=== PATIENT | male | born 1955 | race Hispanic/Latino ===

== ENCOUNTER 2020-07-28 09:16 | Observation (INO) | payer OTHER ==
[2020-07-25 16:08] LABS: EOSINOPHILS % (AUTO) 1.7 % (0.0-8.0); LYMPHOCYTES % (AUTO) 24.4 % (21.0-51.0); MEAN CORPUSCULAR HEMOGLOBIN 25.9 pg (27.0-33.0); MEAN CORPUSCULAR HGB CONC 31.7 g/dL (32.0-36.0); MEAN CORPUSCULAR VOLUME 81.7 fL (79-99); MONOCYTES % (AUTO) 7.7 % (3.0-13.0); NEUTROPHILS % (AUTO) 64.7 % (40.0-77.0); PLATELET COUNT (AUTO) 199 K/uL (130-400); RED BLOOD CELL COUNT(AUTO) 5.14 MIL/uL (4.50-6.20); RED CELL DISTRIBUTION WIDTH 14.6 % (11.0-15.5); WHITE BLOOD COUNT (AUTO) 7.7 K/uL (4.8-10.8)
[2020-07-25 16:09] LABS: APPEARANCE,URINE CLOUDY (CLEAR); BILIRUBIN,URINE NEGATIVE (NEGATIVE); COLOR,URINE YELLOW (YELLOW); GLUCOSE, URINE (UA) NEGATIVE (NEGATIVE); KETONES,URINE NEGATIVE (NEGATIVE); LEUKOCYTE ESTERASE ,URINE LARGE (NEGATIVE); NITRATE,URINE POSITIVE (NEGATIVE); OCCULT BLOOD,URINE MODERATE (NEGATIVE); PH,URINE 6.5 (5.0-8.0); PROTEIN,URINE 100 mg/dL (NEGATIVE); UROBILINOGEN,URINE 0.2 mg/dL (0.2-1.0)
[2020-07-25 16:21] LABS: INR 0.94 (0.85-1.15); PROTHROMBIN TIME 10.3 SEC (9.6-11.6)
[2020-07-25 16:21] LABS: BACTERIA,URINE Few /HPF (None Seen); WBC,URINE >100 /HPF (0-1)
[2020-07-25 16:22] LABS: SQUAMOUS EPITHELIAL CELL,UR Rare /HPF (0-2)
[2020-07-25 16:24] LABS: CREATININE 1.2 mg/dL (0.5-1.5); POTASSIUM 4.5 mmol/L (3.5-5.1)
[2020-07-27 09:05] VITALS: BP 140/77
[2020-07-28] VITALS (25 sets, daily range): BP systolic 130–190; BP diastolic 69–88
[~2020-07-28] VITALS: Ht 167.6 cm; Wt 71.8 kg
[~2020-07-28 09:16] MED LIST: CEFTRIAXONE SODIUM 1 GM IVP ONE; GENTAMICIN SULFATE IV SCH; PHARMACY COMMUNICATION MISC SCH; SODIUM CHLORIDE 0.9% IV SCH
[2020-07-28] MEDS ORDERED: TAMS-1 PO (10:11)
[2020-07-28] MEDS ORDERED: LEVO500T89 PO (10:11)
[2020-07-28] MEDS ORDERED: LACTATED RINGERS 1000ML 1,000 ML IV ONE (10:22)
[2020-07-28] MEDS ORDERED: SODIUM CHLORIDE 0.9% IV SCH (10:30)
[2020-07-28] MEDS ORDERED: GENTAMICIN SULFATE IV SCH (10:30)
[2020-07-28] MEDS ORDERED: CEFTRIAXONE SODIUM 1 GM ONE (10:52)
[2020-07-28] MEDS ORDERED: SUCCINYLCHOLINE CHLORIDE 20 MG/ML 10 ML VIAL ONE (11:24)
[2020-07-28] MEDS ORDERED: LIDOCAINE PF 100MG/5ML (2%) SYRINGE 5ML ONE (11:24)
[2020-07-28] MEDS ORDERED: GLYCOPYRROLATE 1 MG/5 ML SYRINGE ONE (11:25)
[2020-07-28] MEDS ORDERED: NEOSTIGMINE 5MG/5ML SYR IV ONE (11:25)
[2020-07-28] MEDS ORDERED: DEXAMETHASONE SOD PHOSPHATE 10MG/ML 1ML VIAL ONE (11:25)
[2020-07-28] MEDS ORDERED: PROPOFOL 10 MG/ML 20ML VIAL IV ONE (11:25)
[2020-07-28] MEDS ORDERED: MIDAZOLAM HCL 1 MG/ML 2ML VIAL ONE (11:25)
[2020-07-28] MEDS ORDERED: ONDANSETRON HCL 4 MG/2 ML VIAL ONE (11:26)
[2020-07-28] MEDS ORDERED: FENTANYL CITRATE PF 50 MCG/1 ML 2ML VIAL ONE ×3 (11:26→13:01)
[2020-07-28] MEDS ORDERED: ROCURONIUM 10MG/1ML SYR 10 MG/ML ML ONE (11:26)
[2020-07-28] MEDS ORDERED: ESMOLOL HCL 10 MG/ML 10 ML VIAL ONE (12:37)
[2020-07-28 13:39] LABS: ABG BASE EXCESS -4.7 mmol/L (-2.0-3.0); ABG HCO3 20.8 mmol/L (21.0-28.0); ABG OXYGEN SATURATION 89.2 % (95.0-99.0); ABG PCO2 40 mmHg (35-48)
[2020-07-28 13:49] LABS: ABG BASE EXCESS -2.1 mmol/L (-2.0-3.0); ABG HCO3 23.4 mmol/L (21.0-28.0); ABG OXYGEN SATURATION 94.9 % (95.0-99.0); ABG PCO2 42 mmHg (35-48)
[2020-07-28] MEDS ORDERED: ONDANSETRON HCL 4 MG/2 ML VIAL IVP PRN (14:30)
[2020-07-28] MEDS ORDERED: OPIUM/BELLADONNA ALKALOIDS 1 EACH SUPP.RECT RC PRN (14:30)
[2020-07-28 14:59] LABS: BASOPHILS % (AUTO) 0.3 % (0.0-5.0); EOSINOPHILS % (AUTO) 0.5 % (0.0-8.0); HEMATOCRIT 25.2 % (42-54); LYMPHOCYTES % (AUTO) 28.8 % (21.0-51.0); MEAN CORPUSCULAR HEMOGLOBIN 26.5 pg (27.0-33.0); MEAN CORPUSCULAR HGB CONC 34.1 g/dL (32.0-36.0); MEAN CORPUSCULAR VOLUME 77.8 fL (79-99); NEUTROPHILS % (AUTO) 64.2 % (40.0-77.0); PLATELET COUNT (AUTO) 163 K/uL (130-400); RED BLOOD CELL COUNT(AUTO) 3.24 MIL/uL (4.50-6.20); RED CELL DISTRIBUTION WIDTH 19.8 % (11.0-15.5); WHITE BLOOD COUNT (AUTO) 18.8 K/uL (4.8-10.8)
[2020-07-28] MEDS ORDERED: SODIUM CHLORIDE 0.9% 1000ML 1,000 ML IV ONE (15:17)
[2020-07-28] MEDS: MEROPENEM 500 MG VIAL IVP SCH ×2 (15:28→21:18)
[2020-07-28 15:30] LABS: ABG HCO3 19.3 mmol/L (21.0-28.0); ABG OXYGEN SATURATION 99.4 % (95.0-99.0); ABG PCO2 34 mmHg (35-48)
[2020-07-28] MEDS: SODIUM CHLORIDE 0.9% 1000ML 1,000 ML IV SCH (15:38)
[2020-07-28 15:42] LABS: INR 1.1 (0.85-1.15); PROTHROMBIN TIME 11.9 SEC (9.6-11.6)
[2020-07-28 15:43] LABS: PARTIAL THROMBOPLASTIN TIME 29.4 SEC (26.3-35.5)
[2020-07-28] MEDS ORDERED: LABETALOL HCL 5 MG/ML 20ML VIAL IV PRN (15:45)
[2020-07-28] MEDS ORDERED: LIDOCAINE HCL-MPF 1% 2ML VIAL IV PRN ×2 (15:45)
[2020-07-28] MEDS ORDERED: POTASSIUM CHLORIDE 10% ELIXIR 20 MEQ/15 ML UDCUP PO PRN (15:45)
[2020-07-28] MEDS ORDERED: MAGNESIUM 2GM PREMIX 50ML 50 ML IV PRN (15:45)
[2020-07-28] MEDS ORDERED: POTASSIUM CHLORIDE 20 MEQ ERTAB PO PRN (15:45)
[2020-07-28] MEDS ORDERED: POTASSIUM CHLORIDE 20MEQ/100ML 100 ML IV PRN ×2 (15:45)
[2020-07-28 16:04] LABS: ALBUMIN 2.4 g/dL (3.5-5.0); BILIRUBIN,TOTAL 1.3 mg/dL (0.2-1.0); CREATININE 0.9 mg/dL (0.5-1.5); POTASSIUM 4.1 mmol/L (3.5-5.1); TOTAL PROTEIN, SERUM 6.3 g/dL (6.0-8.3)
[2020-07-28] MEDS ORDERED: SODIUM BICARB 50MEQ 50ML VIAL IV STA (16:33)
[2020-07-28] MEDS ORDERED: IPRATROPIUM 0.5 MG/2.5 ML INH IH ONE (16:33)
[2020-07-28] MEDS: MORPHINE SULFATE 2 MG/ML 1ML SYG IVP PRN (17:07)
[2020-07-28] MEDS: IPRATROPIUM 0.5 MG/2.5 ML INH IH SCH (18:14)
[2020-07-28 18:29] LABS: CREATININE 0.9 mg/dL (0.5-1.5); POTASSIUM 3.7 mmol/L (3.5-5.1)
[2020-07-28] MEDS: SODIUM CHLORIDE 1,000 MG TAB PO SCH ×2 (19:00→21:17)
[2020-07-28] MEDS ORDERED: SODIUM CHLORIDE 1,000 MG TAB PO SCH (21:00)
[2020-07-28 21:27] LABS: CREATININE 1.2 mg/dL (0.5-1.5); POTASSIUM 4.2 mmol/L (3.5-5.1)
[2020-07-28] MEDS: TRAMADOL HCL 50 MG TABLET PO PRN (22:08)
[2020-07-29] VITALS (26 sets, daily range): BP systolic 90–157; BP diastolic 40–82
[2020-07-29] MEDS: IPRATROPIUM 0.5 MG/2.5 ML INH IH SCH ×5 (00:01→23:45)
[2020-07-29 00:40] LABS: HEMATOCRIT 25.9 % (42-54)
[2020-07-29] MEDS: SODIUM CHLORIDE 0.9% 1000ML 1,000 ML IV SCH (00:55)
[2020-07-29] MEDS: MORPHINE SULFATE 2 MG/ML 1ML SYG IVP PRN (03:32)
[2020-07-29 04:46] LABS: BASOPHILS % (AUTO) 0.1 % (0.0-5.0); LYMPHOCYTES % (AUTO) 5.8 % (21.0-51.0); MEAN CORPUSCULAR HEMOGLOBIN 25.1 pg (27.0-33.0); MEAN CORPUSCULAR HGB CONC 33.1 g/dL (32.0-36.0); MEAN CORPUSCULAR VOLUME 75.8 fL (79-99); MONOCYTES % (AUTO) 6.6 % (3.0-13.0); NEUTROPHILS % (AUTO) 86.7 % (40.0-77.0); PLATELET COUNT (AUTO) 169 K/uL (130-400); RED BLOOD CELL COUNT(AUTO) 3.43 MIL/uL (4.50-6.20); RED CELL DISTRIBUTION WIDTH 18.1 % (11.0-15.5); WHITE BLOOD COUNT (AUTO) 14.9 K/uL (4.8-10.8)
[2020-07-29 04:58] LABS: INR 1.03 (0.85-1.15); PROTHROMBIN TIME 11.2 SEC (9.6-11.6)
[2020-07-29 05:00] LABS: PARTIAL THROMBOPLASTIN TIME 23.8 SEC (26.3-35.5)
[2020-07-29 05:02] LABS: ALBUMIN 2.7 g/dL (3.5-5.0); BILIRUBIN,TOTAL 1.7 mg/dL (0.2-1.0); CREATININE 1.4 mg/dL (0.5-1.5); MAGNESIUM 1.4 mg/dL (1.80-2.40); POTASSIUM 4.4 mmol/L (3.5-5.1); TOTAL PROTEIN, SERUM 5.5 g/dL (6.0-8.3)
[2020-07-29] MEDS: MEROPENEM 500 MG VIAL IVP SCH ×3 (06:01→22:32)
[2020-07-29] MEDS: SODIUM CHLORIDE 1,000 MG TAB PO SCH ×2 (08:50→21:01)
[2020-07-29] MEDS: TRAMADOL HCL 50 MG TABLET PO PRN ×2 (14:38→21:00)
[2020-07-30 04:00] VITALS: BP 92/56
[2020-07-30] MEDS: TRAMADOL HCL 50 MG TABLET PO PRN ×2 (04:03→14:04)
[2020-07-30 05:24] LABS: HEMATOCRIT 23.8 % (42-54); MEAN CORPUSCULAR HEMOGLOBIN 25.1 pg (27.0-33.0); MEAN CORPUSCULAR HGB CONC 31.9 g/dL (32.0-36.0); MEAN CORPUSCULAR VOLUME 78.5 fL (79-99); RED BLOOD CELL COUNT(AUTO) 3.03 MIL/uL (4.50-6.20); RED CELL DISTRIBUTION WIDTH 19.2 % (11.0-15.5); WHITE BLOOD COUNT (AUTO) 16.7 K/uL (4.8-10.8)
[2020-07-30 05:31] LABS: CREATININE 1.5 mg/dL (0.5-1.5)
[2020-07-30] MEDS: MEROPENEM 500 MG VIAL IVP SCH ×3 (05:55→21:18)
[2020-07-30] MEDS: IPRATROPIUM 0.5 MG/2.5 ML INH IH SCH ×4 (06:31→23:40)
[2020-07-30 07:53] VITALS: BP 103/58
[2020-07-30 11:10] VITALS: BP 92/52
[2020-07-30 16:20] VITALS: BP 122/65
[2020-07-30 20:00] VITALS: BP 117/54
[2020-07-31] VITALS: BP 119/61
[2020-07-31 04:00] VITALS: BP 106/68
[2020-07-31 05:31] LABS: BASOPHILS % (AUTO) 0.3 % (0.0-5.0); EOSINOPHILS % (AUTO) 0.6 % (0.0-8.0); HEMATOCRIT 26.4 % (42-54); LYMPHOCYTES % (AUTO) 22.2 % (21.0-51.0); MEAN CORPUSCULAR HEMOGLOBIN 24.7 pg (27.0-33.0); MEAN CORPUSCULAR HGB CONC 31.4 g/dL (32.0-36.0); MEAN CORPUSCULAR VOLUME 78.6 fL (79-99); MONOCYTES % (AUTO) 10.7 % (3.0-13.0); PLATELET COUNT (AUTO) 160 K/uL (130-400); RED BLOOD CELL COUNT(AUTO) 3.36 MIL/uL (4.50-6.20); RED CELL DISTRIBUTION WIDTH 18.4 % (11.0-15.5)
[2020-07-31 05:37] LABS: CREATININE 1.2 mg/dL (0.5-1.5); POTASSIUM 3.5 mmol/L (3.5-5.1)
[2020-07-31] MEDS: IPRATROPIUM 0.5 MG/2.5 ML INH IH SCH ×2 (05:57→11:08)
[2020-07-31] MEDS: MEROPENEM 500 MG VIAL IVP SCH (07:28)
[2020-07-31 07:54] VITALS: BP 107/54
[2020-07-31 11:20] VITALS: BP 120/72
== END 2020-07-31 14:30 | disposition home or self-care (01) ==
LOC: DAH 09:16 → 2CH 09:17 → DAH 09:17 → INTOOBSV 09:17 → 3AH 07-29 14:12
PROVIDERS: ADMIT Urology; ATTEND Urology
DX: N40.1 Benign prostatic hyperplasia with lower urinary tract symptoms (principal); Z20.822 Contact with and (suspected) exposure to COVID-19; R33.8 Other retention of urine; N39.0 Urinary tract infection, site not specified; B96.1 Klebsiella pneumoniae [K. pneumoniae] as the cause of diseases classified elsewhere; D64.9 Anemia, unspecified; E87.1 Hypo-osmolality and hyponatremia; R07.89 Other chest pain; I10 Essential (primary) hypertension; R00.1 Bradycardia, unspecified; Z16.24 Resistance to multiple antibiotics; Z79.899 Other long term (current) drug therapy
CPT/HCPCS: 36415 ×5; 52648; 71045 ×2; 76700; 80048 ×3; 80053 ×2; 81001; 82435; 82803 ×3; 82947; 83605; 83735; 83880; 84132; 84145; 84295; 84484 ×2; 85014 ×2; 85018 ×3; 85025 ×4; 85027; 85610 ×3; 85730 ×3; 87040 ×2; 87077; 87088; 87186; 88305; 93005 ×2; 93306; 93356; 94640 ×13; 94664 ×2; 96361 ×2; 96365; 96366; 96367; 96375 ×2; 96376 ×3; 97116; 97161; A4215; A4221; A4222; A4223; A4354; A4358; A4600; A4663; A6260; C9803; G0378 ×66; G8978; G8979; G8980; G8981; G8982; G8983; J0330; J0696; J1100; J1580 ×2; J2001; J2185 ×8; J2250; J2405; J2704; J2710; J3010 ×3; J3475; J3490 ×3; J7030 ×2; J7120 ×2; U0003